=== PATIENT | male | born 1970 | race Caucasian/White ===

== ENCOUNTER 2020-10-29 18:50 | Emergency (ER) | payer OTHER ==
[~2020-10-29 18:50] MED LIST: ALLOPURINOL300 MG PO; AMOXICILLIN500 M2 PO; AUGMENTIN 875-1 EACH PO; AZOR 5-20 MG T1 EACH PO; CLARITIN-D 241 EACH PO; EFFEXOR XR 3737.5 MG PO; FLEXERIL10 MG PO; IBUPROFEN800 MG PO; MEDROL 4MG DOSEP4 MG PO; MOBIC7.5 MG PO
[2020-10-29 19:45] LABS: BASOPHIL 0.3 % (0-2); EOSINOPHIL 0.6 % (0-5); HCT 41.8 % (42.0-52.0); HGB 13.4 g/dl (13.2-18.0); LYMPHOCYTE 8.6 % (15-48); MCH 29.3 pg (25.0-31.0); MCHC 32.1 g/dL (32.0-36.0); MCV 91.3 fL (78.0-100.0); MONOCYTE 8.9 % (0-12); MPV 10.6 fL (6.0-9.5); NRBC 0; PLT 276 K/uL (150-400); RBC 4.58 M/uL (4.70-6.00); RDW 14.4 % (11.5-14.0); WBC 24.8 K/uL (4.0-10.5)
[2020-10-29 19:46] LABS: BILIRUBIN NEGATIVE (NEGATIVE); BLOOD NEGATIVE Ery/uL (NEGATIVE); CLARITY CLEAR (CLEAR); COLOR YELLOW (YELLOW); GLUCOSE (U) NORMAL (NORMAL); LEUKOCYTES NEGATIVE Leu/uL (NEGATIVE); NITRITE NEGATIVE (NEGATIVE); PROTEIN NEGATIVE (NEGATIVE); UROBILINOGEN 0.2 mg/dL (0.2-1.0)
[2020-10-29 19:56] LABS: BUN/CREAT RATIO (CALC) 10.8 RATIO; CREATININE 1.11 mg/dL (0.67-1.17); POTASSIUM 4.4 mmol/L (3.5-5.1)
[2020-10-29 20:49] LABS: LACTIC ACID 1.5 mmol/L (0.4-1.9)
[2020-10-29 21:14] LABS: AMYLASE 32 U/L (25-115); LIPASE 171 U/L (73-393)
[2020-10-29 21:23] LABS: ALBUMIN 3.6 g/dL (3.4-5.0); GLOBULIN (CALCULATION) 4.1 g/dL; TOTAL PROTEIN 7.7 g/dL (6.4-8.2)
[2020-10-29 21:24] LABS: BILIRUBIN - DIRECT 0.1 mg/dL (0.00-0.20); BILIRUBIN - TOTAL 0.4 mg/dL (0.2-1.0)
== END 2020-10-29 22:14 | disposition left against medical advice (07) ==
LOC: FER 18:50
PROVIDERS: Emergency Medicine; Nurse Practitioner Family
DX: K85.90 Acute pancreatitis without necrosis or infection, unspecified (principal); I10 Essential (primary) hypertension
CPT/HCPCS: 36415; 80048; 80076; 81003; 82150; 83605; 83690; 85025; J1885; J7030; Q9967

== ENCOUNTER 2020-11-16 09:37 | Emergency (ER) | payer OTHER ==
[2020-11-16] MEDS ORDERED: ZANAFLEX4 M1 PO (13:47)
== END 2020-11-16 14:17 | disposition home or self-care (01) ==
LOC: FER 09:37
DX: M54.16 Radiculopathy, lumbar region (principal); I10 Essential (primary) hypertension; Z98.890 Other specified postprocedural states
CPT/HCPCS: J2270